=== PATIENT | female | born 1950 | race Caucasian/White ===

== ENCOUNTER 2021-03-27 16:49 | Inpatient (IN) | payer OTHER ==
[2021-03-27 17:50] VITALS: BMI 18.6
[2021-03-27] MEDS ORDERED: BISMUTH SUBSALICYLATE 524 MG/30 ML PO PRN (19:59)
[2021-03-27] MEDS ORDERED: guaiFENesin 200 MG/10 ML 10 ML UNIT-DOSE CUPS PO PRN (19:59)
[2021-03-27] MEDS ORDERED: MAGNESIUM HYDROX 2400MG/30ML ORAL SUSPENSION 30 ML CUP PO PRN (19:59)
[2021-03-27] MEDS ORDERED: MAG HYDROX/AL HYDROX/SIMETH 30 ML UNIT-DOSE CUP PO PRN (19:59)
[2021-03-27] MEDS ORDERED: DICYCLOMINE HCL 10 MG CAPSULE PO PRN (19:59)
[2021-03-27] MEDS ORDERED: LORazepam 1 MG TABLET PO PRN (19:59)
[2021-03-27] MEDS ORDERED: ONDANSETRON *ODT* 4 MG TABLET SL PRN (19:59)
[2021-03-27] MEDS ORDERED: P-EPHED 60MG/TRIPROLIDI 2.5MG TABLET PO PRN (19:59)
[2021-03-27] MEDS ORDERED: MAGNESIUM CITRATE 300 ML BOTTLE PO PRN (19:59)
[2021-03-27] MEDS ORDERED: ACETAMINOPHEN 325 MG TABLET (FP) PO PRN (19:59)
[2021-03-27] MEDS ORDERED: MENTHOL/PHENOL 1 EACH UD MM PRN (19:59)
[2021-03-27] MEDS ORDERED: chlordiazePOXIDE HCL 25 MG CAPSULE PO ONE (20:09)
[2021-03-27] MEDS ORDERED: chlordiazePOXIDE HCL 25 MG CAPSULE PO PRN (20:09)
[2021-03-27] MEDS ORDERED: LORazepam 2 MG TABLET PO SCH (23:00)
[2021-03-28] MEDS: MELATONIN 5 MG TABLETS PO SCH ×2 (00:51→22:25)
[2021-03-28] MEDS: THIAMINE HCL 100 MG TABLET (FP) PO SCH ×2 (00:51→22:25)
[2021-03-28] MEDS: chlordiazePOXIDE HCL 25 MG CAPSULE PO SCH ×5 (00:51→22:26)
[2021-03-28] MEDS: PRENATAL VITAMINS W/ FOLIC ACID TABLET (FP) PO SCH (10:17)
[2021-03-28 14:04] LABS: HEMATOCRIT 35.3 % (32.4-45.2); HEMOGLOBIN 11.8 GM/dL (10.7-15.3); MCH 28.9 pg (25.7-33.7); MCHC 33.5 g/dl (32.0-36.0); MEAN CELL VOLUME 86.3 fl (80-96); MEAN PLT VOLUME 7.5 fl (7.5-11.1); PLATELET COUNT 219 10^3/uL (134-434); RDW 13.5 % (11.6-15.6)
[2021-03-28 14:45] LABS: BILIRUBIN,TOTAL 0.8 mg/dL (0.2-1); BLOOD UREA NITROGEN 19.5 mg/dL (7-18); CALCIUM 8.7 mg/dL (8.5-10.1); CREATININE 1.3 mg/dL (0.55-1.3)
[2021-03-28] MEDS: IBUPROFEN 400 MG TABLET (FP) PO PRN (17:53)
[2021-03-29] MEDS ORDERED: LORazepam 1 MG TABLET PO SCH (05:00)
[2021-03-29] MEDS: IBUPROFEN 400 MG TABLET (FP) PO PRN (06:08)
[2021-03-29] MEDS: chlordiazePOXIDE HCL 25 MG CAPSULE PO SCH ×4 (06:09→22:16)
[2021-03-29] MEDS ORDERED: LEVOTHYROXINE NA 88 MCG TABLET (FP) PO SCH ×2 (07:00→10:00)
[2021-03-29] MEDS: PRENATAL VITAMINS W/ FOLIC ACID TABLET (FP) PO SCH (10:26)
[2021-03-29] MEDS: MELATONIN 5 MG TABLETS PO SCH (22:15)
[2021-03-29] MEDS: THIAMINE HCL 100 MG TABLET (FP) PO SCH (22:15)
[2021-03-30] MEDS ORDERED: LORazepam 0.5 MG TABLET PO PRN
[2021-03-30] MEDS ORDERED: chlordiazePOXIDE HCL 10 MG CAPSULE PO PRN
[2021-03-30] MEDS: IBUPROFEN 400 MG TABLET (FP) PO PRN ×2 (03:35→18:08)
[2021-03-30] MEDS ORDERED: LORazepam 0.5 MG TABLET PO SCH (05:00)
[2021-03-30] MEDS: chlordiazePOXIDE HCL 10 MG CAPSULE PO SCH ×4 (06:02→22:13)
[2021-03-30] MEDS: ACETAMINOPHEN 325 MG TABLET (FP) PO PRN (06:03)
[2021-03-30] MEDS: LEVOTHYROXINE NA 88 MCG TABLET (FP) PO SCH (07:59)
[2021-03-30] MEDS: PRENATAL VITAMINS W/ FOLIC ACID TABLET (FP) PO SCH (10:10)
[2021-03-30] MEDS: MELATONIN 5 MG TABLETS PO SCH (22:13)
[2021-03-30] MEDS: METHOCARBAMOL 500 MG TABLET PO PRN (22:13)
[2021-03-30] MEDS: THIAMINE HCL 100 MG TABLET (FP) PO SCH (22:13)
[2021-03-31] MEDS ORDERED: LORazepam 0.5 MG TABLET PO ONE (05:00)
[2021-03-31] MEDS: IBUPROFEN 400 MG TABLET (FP) PO PRN (06:28)
[2021-03-31] MEDS: LEVOTHYROXINE NA 88 MCG TABLET (FP) PO SCH (06:29)
[2021-03-31] MEDS: chlordiazePOXIDE HCL 10 MG CAPSULE PO SCH ×2 (06:29→17:56)
[2021-03-31] MEDS: METHOCARBAMOL 500 MG TABLET PO PRN ×2 (10:22→22:34)
[2021-03-31] MEDS: hydrOXYzine PAMOATE 25 MG CAPSULE (FP) PO PRN ×3 (10:22→22:34)
[2021-03-31] MEDS: PRENATAL VITAMINS W/ FOLIC ACID TABLET (FP) PO SCH (10:25)
[2021-03-31] MEDS: ACETAMINOPHEN 325 MG TABLET (FP) PO PRN (17:56)
[2021-03-31] MEDS: THIAMINE HCL 100 MG TABLET (FP) PO SCH (22:34)
[2021-03-31] MEDS: MELATONIN 5 MG TABLETS PO SCH (22:34)
[2021-04-01] MEDS ORDERED: chlordiazePOXIDE HCL 10 MG CAPSULE PO ONE (05:00)
[2021-04-01] MEDS: LEVOTHYROXINE NA 88 MCG TABLET (FP) PO SCH (06:09)
[2021-04-01 08:54] VITALS: BP 113/67; PULSE 107; TEMP 96.9
== END 2021-04-01 09:40 | disposition home or self-care (01) | DRG 897 ==
LOC: YASAS 16:49 → Y3N 23:00
PROVIDERS: ADMIT Allergy & Immunology; ATTEND Allergy & Immunology
PROC: HZ2ZZZZ Detoxification Services for Substance Abuse Treatment (ICD-10-PCS; principal; 2021-03-27)
DX: F10.230 Alcohol dependence with withdrawal, uncomplicated (principal); F19.24 Other psychoactive substance dependence with psychoactive substance-induced mood disorder; F41.8 Other specified anxiety disorders; F32.A Depression, unspecified; E03.9 Hypothyroidism, unspecified; Z87.891 Personal history of nicotine dependence; Z91.14 Patient's other noncompliance with medication regimen; Z59.01 Sheltered homelessness; Z56.0 Unemployment, unspecified
CPT/HCPCS: 36415; 80053; 85027; 86780; 93005; 93010; C9803; U0003; U0005

== ENCOUNTER 2021-07-23 20:01 | Inpatient (IN) | payer OTHER ==
[2021-07-23 20:24] VITALS: BMI 20.2
[2021-07-23] MEDS ORDERED: BENZOCAINE/MENTHOL (CHLORASEPTIC ) LOZENGE MM PRN (21:25)
[2021-07-23] MEDS ORDERED: MAGNESIUM CITRATE 300 ML BOTTLE PO PRN (21:25)
[2021-07-23] MEDS ORDERED: MAGNESIUM HYDROX 2400MG/30ML ORAL SUSPENSION 30 ML CUP PO PRN (21:25)
[2021-07-23] MEDS ORDERED: MAG HYDROX/AL HYDROX/SIMETH 30 ML UNIT-DOSE CUP PO PRN (21:25)
[2021-07-23] MEDS ORDERED: BISMUTH SUBSALICYLATE 524 MG/30 ML PO PRN (21:25)
[2021-07-23] MEDS ORDERED: ACETAMINOPHEN 325 MG TABLET (FP) PO PRN ×2 (21:25)
[2021-07-23] MEDS ORDERED: DICYCLOMINE HCL 10 MG CAPSULE PO PRN (21:25)
[2021-07-23] MEDS ORDERED: LOPERAMIDE HCL 2 MG CAPSULE PO PRN (21:25)
[2021-07-23] MEDS ORDERED: ONDANSETRON *ODT* 4 MG TABLET SL PRN (21:25)
[2021-07-23] MEDS ORDERED: diazePAM 5 MG TABLET PO PRN (21:28)
[2021-07-24] MEDS: MELATONIN 5 MG TABLETS PO PRN ×2 (00:12→22:13)
[2021-07-24] MEDS: THIAMINE HCL 100 MG TABLET (FP) PO SCH ×2 (00:14→22:13)
[2021-07-24] MEDS ORDERED: LORazepam 1 MG TABLET PO PRN (10:06)
[2021-07-24] MEDS ORDERED: LORazepam 2 MG TABLET PO SCH (11:00)
[2021-07-24] MEDS: LEVOTHYROXINE NA 88 MCG TABLET (FP) PO SCH (11:00)
[2021-07-24] MEDS: PRENATAL VITAMINS W/ FOLIC ACID TABLET (FP) PO SCH (11:00)
[2021-07-24] MEDS ORDERED: diazePAM 5 MG TABLET PO PRN (11:06)
[2021-07-24] MEDS: IBUPROFEN 400 MG TABLET (FP) PO PRN (12:55)
[2021-07-24 12:59] LABS: HEMATOCRIT 35.1 % (32.4-45.2); HEMOGLOBIN 11.9 GM/dL (10.7-15.3); MEAN CELL VOLUME 96.9 fl (80-96); MEAN PLT VOLUME 7.3 fl (7.5-11.1); PLATELET COUNT 104 10^3/uL (134-434); RBC 3.62 M/mm3 (3.60-5.2); WHITE BLOOD COUNT 3.1 K/mm3 (4.0-10.0)
[2021-07-24 13:41] LABS: BLOOD UREA NITROGEN 16.1 mg/dL (7-18); CALCIUM 9.2 mg/dL (8.5-10.1)
[2021-07-24 13:42] LABS: ALBUMIN 3.4 g/dl (3.4-5.0); BILIRUBIN,TOTAL 0.7 mg/dL (0.2-1); CREATININE 0.6 mg/dL (0.55-1.3); TOT PROT 7.2 g/dl (6.4-8.2)
[2021-07-24] MEDS: diazePAM 5 MG TABLET PO SCH ×2 (17:32→22:13)
[2021-07-25] MEDS: diazePAM 5 MG TABLET PO SCH ×4 (06:15→22:29)
[2021-07-25] MEDS: LEVOTHYROXINE NA 88 MCG TABLET (FP) PO SCH (06:16)
[2021-07-25] MEDS: METHOCARBAMOL 500 MG TABLET PO PRN ×2 (10:16→22:28)
[2021-07-25] MEDS: PRENATAL VITAMINS W/ FOLIC ACID TABLET (FP) PO SCH (10:16)
[2021-07-25] MEDS: IBUPROFEN 600 MG TABLET (FP) PO PRN ×2 (10:17→15:47)
[2021-07-25] MEDS: hydrOXYzine PAMOATE 25 MG CAPSULE (FP) PO PRN (17:57)
[2021-07-25] MEDS: THIAMINE HCL 100 MG TABLET (FP) PO SCH (22:28)
[2021-07-25] MEDS: MELATONIN 5 MG TABLETS PO PRN (22:29)
[2021-07-26] MEDS ORDERED: LORazepam 1 MG TABLET PO SCH (05:00)
[2021-07-26] MEDS: diazePAM 5 MG TABLET PO SCH ×3 (06:10→22:22)
[2021-07-26] MEDS: LEVOTHYROXINE NA 88 MCG TABLET (FP) PO SCH (06:10)
[2021-07-26] MEDS: METHOCARBAMOL 500 MG TABLET PO PRN ×2 (06:12→22:23)
[2021-07-26] MEDS: IBUPROFEN 400 MG TABLET (FP) PO PRN (06:12)
[2021-07-26] MEDS: PRENATAL VITAMINS W/ FOLIC ACID TABLET (FP) PO SCH (10:27)
[2021-07-26] MEDS: IBUPROFEN 600 MG TABLET (FP) PO PRN (11:23)
[2021-07-26] MEDS: ARTIFICIAL TEARS (POLYVINYL ALCOHOL) OPTH DROPS OU SCH ×2 (13:41→22:22)
[2021-07-26] MEDS: MELATONIN 5 MG TABLETS PO PRN (22:23)
[2021-07-26] MEDS: THIAMINE HCL 100 MG TABLET (FP) PO SCH (22:23)
[2021-07-27] MEDS ORDERED: LORazepam 0.5 MG TABLET PO PRN
[2021-07-27] MEDS ORDERED: LORazepam 0.5 MG TABLET PO SCH (05:00)
[2021-07-27] MEDS: IBUPROFEN 400 MG TABLET (FP) PO PRN ×2 (05:24→12:00)
[2021-07-27] MEDS: METHOCARBAMOL 500 MG TABLET PO PRN ×2 (05:24→22:22)
[2021-07-27] MEDS: diazePAM 5 MG TABLET PO SCH ×2 (05:24→17:38)
[2021-07-27] MEDS: LEVOTHYROXINE NA 88 MCG TABLET (FP) PO SCH (06:41)
[2021-07-27] MEDS: ARTIFICIAL TEARS (POLYVINYL ALCOHOL) OPTH DROPS OU SCH ×2 (10:08→22:22)
[2021-07-27] MEDS: PRENATAL VITAMINS W/ FOLIC ACID TABLET (FP) PO SCH (10:08)
[2021-07-27] MEDS: hydrOXYzine PAMOATE 25 MG CAPSULE (FP) PO PRN (10:10)
[2021-07-27] MEDS ORDERED: guaiFENesin 200 MG/10 ML 10 ML UNIT-DOSE CUPS PO PRN (10:13)
[2021-07-27] MEDS: THIAMINE HCL 100 MG TABLET (FP) PO SCH (22:20)
[2021-07-27] MEDS: MELATONIN 5 MG TABLETS PO PRN (22:22)
[2021-07-28] MEDS ORDERED: LORazepam 0.5 MG TABLET PO ONE (05:00)
[2021-07-28] MEDS ORDERED: diazePAM 5 MG TABLET PO ONE (06:00)
[2021-07-28] MEDS: LEVOTHYROXINE NA 88 MCG TABLET (FP) PO SCH (06:05)
[2021-07-28] MEDS: METHOCARBAMOL 500 MG TABLET PO PRN (06:05)
[2021-07-28] MEDS: IBUPROFEN 400 MG TABLET (FP) PO PRN (06:06)
[2021-07-28 08:59] VITALS: BP 117/77; PULSE 71; TEMP 97.1
[2021-07-28] MEDS: ARTIFICIAL TEARS (POLYVINYL ALCOHOL) OPTH DROPS OU SCH (09:38)
[2021-07-28] MEDS: PRENATAL VITAMINS W/ FOLIC ACID TABLET (FP) PO SCH (09:39)
== END 2021-07-28 09:39 | disposition home or self-care (01) | DRG 897 ==
LOC: YASAS 20:01 → UNDOADMIN 21:58 → Y3N 21:58 → UNDODISIN 07-28 09:39
PROVIDERS: ADMIT Allergy & Immunology; ATTEND Surgery
PROC: HZ2ZZZZ Detoxification Services for Substance Abuse Treatment (ICD-10-PCS; principal; 2021-07-23)
DX: F10.230 Alcohol dependence with withdrawal, uncomplicated (principal); F10.220 Alcohol dependence with intoxication, uncomplicated; F19.24 Other psychoactive substance dependence with psychoactive substance-induced mood disorder; D69.6 Thrombocytopenia, unspecified; E03.9 Hypothyroidism, unspecified; E16.2 Hypoglycemia, unspecified; Z56.0 Unemployment, unspecified; Z59.01 Sheltered homelessness
CPT/HCPCS: 36415; 80053; 84443; 85027; 86780; 87811; C9803-CS; U0003; U0005

== ENCOUNTER 2021-09-10 16:08 | Inpatient (IN) | payer OTHER ==
[2021-09-10 17:33] VITALS: BMI 16.9
[2021-09-10] MEDS ORDERED: MAGNESIUM CITRATE 300 ML BOTTLE PO PRN (18:48)
[2021-09-10] MEDS ORDERED: guaiFENesin 200 MG/10 ML 10 ML UNIT-DOSE CUPS PO PRN (18:48)
[2021-09-10] MEDS ORDERED: P-EPHED 60MG/TRIPROLIDI 2.5MG TABLET PO PRN (18:48)
[2021-09-10] MEDS ORDERED: MAGNESIUM HYDROX 2400MG/30ML ORAL SUSPENSION 30 ML CUP PO PRN (18:48)
[2021-09-10] MEDS ORDERED: MAG HYDROX/AL HYDROX/SIMETH 30 ML UNIT-DOSE CUP PO PRN (18:48)
[2021-09-10] MEDS ORDERED: LOPERAMIDE HCL 2 MG CAPSULE PO PRN (18:48)
[2021-09-10] MEDS ORDERED: IBUPROFEN 400 MG TABLET (FP) PO ONE (19:11)
[2021-09-10] MEDS: IBUPROFEN 400 MG TABLET (FP) PO PRN (19:14)
[2021-09-11] MEDS: hydrOXYzine PAMOATE 25 MG CAPSULE (FP) PO SCH ×6 (00:54→21:18)
[2021-09-11] MEDS: THIAMINE HCL 100 MG TABLET (FP) PO SCH ×2 (00:54→21:18)
[2021-09-11] MEDS: MELATONIN 5 MG TABLETS PO SCH ×2 (00:54→21:18)
[2021-09-11] MEDS: IBUPROFEN 400 MG TABLET (FP) PO PRN ×3 (01:54→16:28)
[2021-09-11] MEDS: ACETAMINOPHEN 325 MG TABLET (FP) PO PRN ×2 (06:33→21:19)
[2021-09-11] MEDS: LEVOTHYROXINE NA 25 MCG TABLET (FP) PO SCH (06:34)
[2021-09-11] MEDS ORDERED: LEVOTHYROXINE NA 25 MCG TABLET (FP) PO SCH (07:00)
[2021-09-11] MEDS: PRENATAL VITAMINS W/ FOLIC ACID TABLET (FP) PO SCH (10:26)
[2021-09-11] MEDS: NALTREXONE HCL 50 MG TABLET PO SCH (10:26)
[2021-09-11 12:29] LABS: HEMATOCRIT 30.1 % (32.4-45.2); HEMOGLOBIN 9.9 GM/dL (10.7-15.3); MCH 31.9 pg (25.7-33.7); MCHC 32.9 g/dl (32.0-36.0); MEAN CELL VOLUME 97.1 fl (80-96); MEAN PLT VOLUME 7.4 fl (7.5-11.1); PLATELET COUNT 356 10^3/uL (134-434); WHITE BLOOD COUNT 4.9 K/mm3 (4.0-10.0)
[2021-09-11 12:40] LABS: BLOOD UREA NITROGEN 10.9 mg/dL (7-18)
[2021-09-11 12:41] LABS: ALBUMIN 2.9 g/dl (3.4-5.0)
[2021-09-11 12:43] LABS: CREATININE 1.1 mg/dL (0.55-1.3)
[2021-09-11 12:45] LABS: BILIRUBIN,TOTAL 0.3 mg/dL (0.2-1); TOT PROT 6.3 g/dl (6.4-8.2)
[2021-09-11 13:01] LABS: SYPHILIS W/ RPR CONF NON-REACTIVE (NONREACTIVE)
[2021-09-11] MEDS: FERROUS SO4 325 MG TABLET (FP) PO SCH (18:34)
[2021-09-12] MEDS: LEVOTHYROXINE NA 25 MCG TABLET (FP) PO SCH (06:18)
[2021-09-12] MEDS: ACETAMINOPHEN 325 MG TABLET (FP) PO PRN ×2 (06:18→17:45)
[2021-09-12] MEDS: hydrOXYzine PAMOATE 25 MG CAPSULE (FP) PO SCH ×5 (06:18→21:59)
[2021-09-12] MEDS: FERROUS SO4 325 MG TABLET (FP) PO SCH ×3 (07:12→17:43)
[2021-09-12] MEDS: IBUPROFEN 400 MG TABLET (FP) PO PRN ×2 (08:41→14:52)
[2021-09-12] MEDS: PRENATAL VITAMINS W/ FOLIC ACID TABLET (FP) PO SCH (10:54)
[2021-09-12] MEDS: NALTREXONE HCL 50 MG TABLET PO SCH (10:55)
[2021-09-12] MEDS: THIAMINE HCL 100 MG TABLET (FP) PO SCH (21:58)
[2021-09-12] MEDS: MELATONIN 5 MG TABLETS PO SCH (21:58)
[2021-09-13] MEDS: LEVOTHYROXINE NA 25 MCG TABLET (FP) PO SCH (06:23)
[2021-09-13] MEDS: ACETAMINOPHEN 325 MG TABLET (FP) PO PRN ×2 (06:23→22:04)
[2021-09-13] MEDS: hydrOXYzine PAMOATE 25 MG CAPSULE (FP) PO SCH ×5 (06:24→22:03)
[2021-09-13] MEDS: FERROUS SO4 325 MG TABLET (FP) PO SCH ×3 (07:55→16:51)
[2021-09-13] MEDS: PRENATAL VITAMINS W/ FOLIC ACID TABLET (FP) PO SCH (10:46)
[2021-09-13] MEDS: IBUPROFEN 400 MG TABLET (FP) PO PRN ×2 (10:46→16:51)
[2021-09-13] MEDS: NALTREXONE HCL 50 MG TABLET PO SCH (10:46)
[2021-09-13] MEDS: MELATONIN 5 MG TABLETS PO SCH (22:02)
[2021-09-13] MEDS: THIAMINE HCL 100 MG TABLET (FP) PO SCH (22:03)
[2021-09-14] MEDS: LEVOTHYROXINE NA 25 MCG TABLET (FP) PO SCH (06:19)
[2021-09-14] MEDS: hydrOXYzine PAMOATE 25 MG CAPSULE (FP) PO SCH ×2 (06:19→10:19)
[2021-09-14] MEDS: ACETAMINOPHEN 325 MG TABLET (FP) PO PRN ×2 (06:20→21:22)
[2021-09-14] MEDS: FERROUS SO4 325 MG TABLET (FP) PO SCH ×3 (08:02→16:50)
[2021-09-14] MEDS: PRENATAL VITAMINS W/ FOLIC ACID TABLET (FP) PO SCH (10:19)
[2021-09-14] MEDS: NALTREXONE HCL 50 MG TABLET PO SCH (10:19)
[2021-09-14] MEDS: IBUPROFEN 400 MG TABLET (FP) PO PRN ×2 (10:20→16:50)
[2021-09-14] MEDS: THIAMINE HCL 100 MG TABLET (FP) PO SCH (21:21)
[2021-09-14] MEDS: hydrOXYzine PAMOATE 25 MG CAPSULE (FP) PO PRN (21:21)
[2021-09-14] MEDS: MELATONIN 5 MG TABLETS PO SCH (21:21)
[2021-09-15] MEDS: ACETAMINOPHEN 325 MG TABLET (FP) PO PRN ×2 (06:32→21:24)
[2021-09-15] MEDS: FERROUS SO4 325 MG TABLET (FP) PO SCH ×3 (07:24→16:56)
[2021-09-15] MEDS: PRENATAL VITAMINS W/ FOLIC ACID TABLET (FP) PO SCH (10:22)
[2021-09-15] MEDS: LEVOTHYROXINE NA 25 MCG TABLET (FP) PO SCH (10:23)
[2021-09-15] MEDS: IBUPROFEN 400 MG TABLET (FP) PO PRN ×2 (10:23→16:54)
[2021-09-15] MEDS: NALTREXONE HCL 50 MG TABLET PO SCH (10:23)
[2021-09-15] MEDS: METHOCARBAMOL 500 MG TABLET PO PRN (12:26)
[2021-09-15] MEDS: MELATONIN 5 MG TABLETS PO SCH (21:24)
[2021-09-15] MEDS: THIAMINE HCL 100 MG TABLET (FP) PO SCH (21:24)
[2021-09-16] MEDS: ACETAMINOPHEN 325 MG TABLET (FP) PO PRN ×2 (06:22→21:25)
[2021-09-16] MEDS: LEVOTHYROXINE NA 25 MCG TABLET (FP) PO SCH (06:23)
[2021-09-16] MEDS: FERROUS SO4 325 MG TABLET (FP) PO SCH ×3 (07:02→16:48)
[2021-09-16 10:15] LABS: URINE APPEARANCE CLEAR; URINE BILIRUBIN NEGATIVE (NEGATIVE); URINE COLOR YELLOW; URINE GLUCOSE (UA) NEGATIVE (NEGATIVE); URINE KETONE NEGATIVE (NEGATIVE); URINE LEUK ESTERASE NEGATIVE (NEGATIVE); URINE NITRITE NEGATIVE (NEGATIVE); URINE PROTEIN NEGATIVE (NEGATIVE); URINE UROBILINOGEN 0.2 mg/dL (0.2-1.0)
[2021-09-16] MEDS: PRENATAL VITAMINS W/ FOLIC ACID TABLET (FP) PO SCH (10:22)
[2021-09-16] MEDS: NALTREXONE HCL 50 MG TABLET PO SCH (10:23)
[2021-09-16] MEDS: IBUPROFEN 400 MG TABLET (FP) PO PRN ×2 (10:23→16:48)
[2021-09-16] MEDS: METHOCARBAMOL 500 MG TABLET PO PRN ×2 (10:24→16:48)
[2021-09-16] MEDS: MELATONIN 5 MG TABLETS PO SCH (21:24)
[2021-09-16] MEDS: THIAMINE HCL 100 MG TABLET (FP) PO SCH (21:24)
[2021-09-17] MEDS: METHOCARBAMOL 500 MG TABLET PO PRN ×3 (06:46→21:39)
[2021-09-17] MEDS: LEVOTHYROXINE NA 25 MCG TABLET (FP) PO SCH (06:47)
[2021-09-17] MEDS: IBUPROFEN 400 MG TABLET (FP) PO PRN ×2 (06:47→13:17)
[2021-09-17] MEDS: FERROUS SO4 325 MG TABLET (FP) PO SCH ×3 (07:03→16:59)
[2021-09-17] MEDS: PRENATAL VITAMINS W/ FOLIC ACID TABLET (FP) PO SCH (10:29)
[2021-09-17] MEDS: NALTREXONE HCL 50 MG TABLET PO SCH (10:29)
[2021-09-17] MEDS: ACETAMINOPHEN 325 MG TABLET (FP) PO PRN ×2 (10:30→21:39)
[2021-09-17] MEDS: MELATONIN 5 MG TABLETS PO SCH (21:39)
[2021-09-17] MEDS: THIAMINE HCL 100 MG TABLET (FP) PO SCH (21:39)
[2021-09-17] MEDS: hydrOXYzine PAMOATE 25 MG CAPSULE (FP) PO PRN (21:39)
[2021-09-18] MEDS: ACETAMINOPHEN 325 MG TABLET (FP) PO PRN ×2 (06:30→21:48)
[2021-09-18] MEDS: LEVOTHYROXINE NA 25 MCG TABLET (FP) PO SCH (06:31)
[2021-09-18] MEDS: FERROUS SO4 325 MG TABLET (FP) PO SCH ×3 (07:06→17:28)
[2021-09-18] MEDS: METHOCARBAMOL 500 MG TABLET PO PRN ×2 (10:28→17:30)
[2021-09-18] MEDS: PRENATAL VITAMINS W/ FOLIC ACID TABLET (FP) PO SCH (10:28)
[2021-09-18] MEDS: NALTREXONE HCL 50 MG TABLET PO SCH (10:28)
[2021-09-18] MEDS: IBUPROFEN 400 MG TABLET (FP) PO PRN ×2 (10:28→17:30)
[2021-09-18] MEDS: THIAMINE HCL 100 MG TABLET (FP) PO SCH (21:47)
[2021-09-18] MEDS: hydrOXYzine PAMOATE 25 MG CAPSULE (FP) PO PRN (21:47)
[2021-09-18] MEDS: MELATONIN 5 MG TABLETS PO SCH (21:47)
[2021-09-19] MEDS: ACETAMINOPHEN 325 MG TABLET (FP) PO PRN ×2 (06:17→21:21)
[2021-09-19] MEDS: LEVOTHYROXINE NA 25 MCG TABLET (FP) PO SCH (06:17)
[2021-09-19] MEDS: FERROUS SO4 325 MG TABLET (FP) PO SCH ×3 (07:34→16:49)
[2021-09-19] MEDS: IBUPROFEN 400 MG TABLET (FP) PO PRN ×2 (10:07→16:47)
[2021-09-19] MEDS: PRENATAL VITAMINS W/ FOLIC ACID TABLET (FP) PO SCH (10:07)
[2021-09-19] MEDS: METHOCARBAMOL 500 MG TABLET PO PRN ×2 (10:07→16:53)
[2021-09-19] MEDS: NALTREXONE HCL 50 MG TABLET PO SCH (10:10)
[2021-09-19] MEDS: MELATONIN 5 MG TABLETS PO SCH (21:19)
[2021-09-19] MEDS: THIAMINE HCL 100 MG TABLET (FP) PO SCH (21:20)
[2021-09-20] MEDS: LEVOTHYROXINE NA 25 MCG TABLET (FP) PO SCH (06:22)
[2021-09-20] MEDS: ACETAMINOPHEN 325 MG TABLET (FP) PO PRN ×2 (06:23→21:54)
[2021-09-20] MEDS: FERROUS SO4 325 MG TABLET (FP) PO SCH ×3 (07:11→17:07)
[2021-09-20] MEDS: PRENATAL VITAMINS W/ FOLIC ACID TABLET (FP) PO SCH (10:54)
[2021-09-20] MEDS: METHOCARBAMOL 500 MG TABLET PO PRN ×3 (10:56→21:54)
[2021-09-20] MEDS: NALTREXONE HCL 50 MG TABLET PO SCH (10:56)
[2021-09-20] MEDS: IBUPROFEN 400 MG TABLET (FP) PO PRN (17:05)
[2021-09-20] MEDS: THIAMINE HCL 100 MG TABLET (FP) PO SCH (21:54)
[2021-09-20] MEDS: MELATONIN 5 MG TABLETS PO SCH (21:54)
[2021-09-21] MEDS: LEVOTHYROXINE NA 25 MCG TABLET (FP) PO SCH (06:09)
[2021-09-21] MEDS: ACETAMINOPHEN 325 MG TABLET (FP) PO PRN (06:09)
[2021-09-21] MEDS: FERROUS SO4 325 MG TABLET (FP) PO SCH (07:02)
[2021-09-21 07:29] VITALS: BP 133/76; PULSE 78; RESP 16; TEMP 97.1
[2021-09-21] MEDS: NALTREXONE HCL 50 MG TABLET PO SCH (09:52)
[2021-09-21] MEDS: PRENATAL VITAMINS W/ FOLIC ACID TABLET (FP) PO SCH (09:52)
[2021-09-21] MEDS: METHOCARBAMOL 500 MG TABLET PO PRN (09:52)
[2021-09-21] MEDS: IBUPROFEN 400 MG TABLET (FP) PO PRN (09:52)
== END 2021-09-21 10:05 | disposition home or self-care (01) | DRG 895 ==
LOC: YASAS 16:08 → Y5N 19:28
PROVIDERS: ADMIT Allergy & Immunology; ATTEND Psychiatry & Neurology Pain Medicine
PROC: HZ42ZZZ Group Counseling for Substance Abuse Treatment, Cognitive-Behavioral (ICD-10-PCS; principal; 2021-09-10)
DX: F10.20 Alcohol dependence, uncomplicated (principal); F11.20 Opioid dependence, uncomplicated; E03.9 Hypothyroidism, unspecified; D50.9 Iron deficiency anemia, unspecified; Z87.891 Personal history of nicotine dependence; Z91.040 Latex allergy status; Z56.0 Unemployment, unspecified; Z59.00 Homelessness unspecified
CPT/HCPCS: 36415; 80053; 81003; 85027; 86780; 86803